=== PATIENT | female | born 1995 | race Caucasian/White ===

== ENCOUNTER 2018-12-06 13:10 | Emergency (ER) | payer BC ==
[~2018-12-06] VITALS: Ht 175.3 cm; Wt 65.8 kg
[2018-12-06] MEDS ORDERED: LEXAPRO 10 MG T10 M2 PO (13:20)
[2018-12-06 13:49] LABS: URINE BILIRUBIN NEGATIVE (Negative); URINE BLOOD NEGATIVE (Negative); URINE CLARITY CLEAR; URINE COLOR YELLOW; URINE GLUCOSE-RANDOM NEGATIVE (Negative); URINE KETONES NEGATIVE (Negative); URINE LEUKOCYTES-REFLEX NEGATIVE (Negative); URINE NITRITE-REFLEX NEGATIVE (Negative); URINE PROTEIN 1+ (Negative); URINE SPECIFIC GRAVITY >= 1.030 (1.005-1.030); URINE UROBILINOGEN 0.2 E.U./dl (0.2-1.0)
[2018-12-06 14:13] LABS: ABSOLUTE EOSINOPHILS 0.1 thou/uL (0.0-0.7); ABSOLUTE LYMPHOCYTES 0.9 thou/uL (0.8-5.3); ABSOLUTE MONOCYTES 0.4 thou/uL (0.0-1.2); ABSOLUTE NEUTROPHILS 5.3 thou/uL (1.6-8.1); BASOPHILS 0.4 %; EOSINOPHILS 1.4 %; HEMATOCRIT 37.1 % (37.0-47.0); HEMOGLOBIN 13.2 gm/dL (12.0-15.0); LYMPHOCYTES 13.4 %; MCH 32.9 pg (26.0-34.0); MCHC 35.5 g/dL (28.0-37.0); MCV 92.6 fL (80.0-100.0); MONOCYTES 6.2 %; MPV 8.9 fl. (7.2-11.1); NUCLEATED RBCS 0 /100WBC; PLATELET COUNT* 133 thou/uL (150-400); POLYS 78.6 %; RDW-CV 13.2 % (10.5-14.5); WBC 6.7 thou/uL (4.0-11.0)
[2018-12-06 14:22] LABS: CALCIUM 8.6 mg/dL (8.5-10.1); CREATININE 0.6 mg/dL (0.6-1.3); POTASSIUM 3.7 mmol/L (3.5-5.1)
[2018-12-06 14:26] LABS: ALBUMIN 3.7 g/dL (3.4-5.0); TOTAL BILIRUBIN 0.9 mg/dL (<0.1-1.0); TOTAL PROTEIN 6.6 g/dL (6.4-8.2)
[2018-12-06] MEDS ORDERED: TRINATE TABLET1 EACH PO (14:48)
[2018-12-06 15:16] VITALS: BP 118/67
--- NOTE | 2018-12-06 16:05 | EKG ---
[place] [address] ELECTROCARDIOGRAM REPORT Name: DANIELLE LEONE Room: [facility]#: [id number] Admission: 12/06/18 Attend Phys: Discharge: 12/06/18 Date of : [birth year] Report #: [id number] THIS REPORT FOR: //name// [facility] ED Test Date: 2018-12-06 Test Time: 13:19:25 Pat Name: DANIELLE LEONE Department: Room: Gender: F Soc Analyst: : 1995 Requested By: Esther Astudillo Order Number: [id number] MD: Allan Hamilton Measurements Intervals Edwards Rate: 61 P: 58 WY: 144 QRS: 79 QRSD: 94 T: 48 QT: 415 QTc: 418 Interpretive Statements Sinus rhythm Baseline wander in lead(s) V2 No previous ECG available for comparison Electronically Signed On 12-06-2018 16:05:21 CDT by Allan Hamilton [email or web address] <ELECTRONICALLY SIGNED> By: Allan Hamilton MD, [facility] 12/06/18 1605 1319 1319 Allan Hamilton MD, FACC /EPI
== END 2018-12-06 15:17 | disposition home or self-care (01) ==
LOC: M.ERS 13:10
PROVIDERS: Nurse Practitioner Family
DX: R55 Syncope and collapse (principal); Z32.01 Encounter for pregnancy test, result positive; R07.89 Other chest pain; Z88.6 Allergy status to analgesic agent